=== PATIENT | female | born 1990 | race Hispanic/Latino ===

== ENCOUNTER 2019-11-08 18:29 | Emergency (ER) | payer MEDICAID, OTHER ==
[2019-11-08 19:42] LABS: BASOPHILS % (AUTO) 0.6 % (0.0-5.0); EOSINOPHILS % (AUTO) 1.6 % (0.0-8.0); HEMATOCRIT 41.9 % (36-48); LYMPHOCYTES % (AUTO) 34.7 % (21.0-51.0); MEAN CORPUSCULAR HEMOGLOBIN 26.7 pg (27.0-33.0); MEAN CORPUSCULAR HGB CONC 32.5 g/dL (32.0-36.0); MEAN CORPUSCULAR VOLUME 82.3 fL (79-99); NEUTROPHILS % (AUTO) 55.9 % (40.0-77.0); PLATELET COUNT (AUTO) 334 K/uL (130-400); RED BLOOD CELL COUNT(AUTO) 5.09 MIL/uL (4.00-5.50); RED CELL DISTRIBUTION WIDTH 13.4 % (11.0-15.5); WHITE BLOOD COUNT (AUTO) 12.3 K/uL (4.8-10.8)
[2019-11-08 19:53] LABS: APPEARANCE,URINE Clear (CLEAR); BILIRUBIN,URINE Negative (NEGATIVE); COLOR,URINE Yellow (YELLOW); GLUCOSE, URINE (UA) Negative (NEGATIVE); KETONES,URINE 15 mg/dL (NEGATIVE); LEUKOCYTE ESTERASE ,URINE Negative (NEGATIVE); NITRATE,URINE Negative (NEGATIVE); OCCULT BLOOD,URINE Negative (NEGATIVE); PROTEIN,URINE Negative (NEGATIVE)
[2019-11-08 19:54] LABS: HCG,QUAL RESULT NEGATIVE (NEGATIVE); POTASSIUM 3.8 mmol/L (3.5-5.1)
[2019-11-08 20:01] LABS: ALBUMIN 4.2 g/dL (3.5-5.0); BILIRUBIN,TOTAL 0.3 mg/dL (0.2-1.0); TOTAL PROTEIN, SERUM 8.5 g/dL (6.0-8.3)
== END 2019-11-08 21:37 | disposition home or self-care (01) ==
LOC: EDH 18:29
DX: R20.2 Paresthesia of skin (principal); J30.2 Other seasonal allergic rhinitis
CPT/HCPCS: 36415; 70450; 80053; 81003; 81025; 85025

== ENCOUNTER 2020-04-14 10:06 | Emergency (ER) | payer OTHER ==
[2020-04-14 11:42] LABS: BASOPHILS % (AUTO) 0.1 % (0.0-5.0); EOSINOPHILS % (AUTO) 0.4 % (0.0-8.0); HEMATOCRIT 45.7 % (36-48); LYMPHOCYTES % (AUTO) 24.6 % (21.0-51.0); MEAN CORPUSCULAR HEMOGLOBIN 26.5 pg (27.0-33.0); MEAN CORPUSCULAR HGB CONC 32.4 g/dL (32.0-36.0); MEAN CORPUSCULAR VOLUME 81.9 fL (79-99); MONOCYTES % (AUTO) 7.8 % (3.0-13.0); PLATELET COUNT (AUTO) 288 K/uL (130-400); RED BLOOD CELL COUNT(AUTO) 5.58 MIL/uL (4.00-5.50); RED CELL DISTRIBUTION WIDTH 14.1 % (11.0-15.5); WHITE BLOOD COUNT (AUTO) 6.9 K/uL (4.8-10.8)
[2020-04-14 11:46] LABS: CREATININE 0.8 mg/dL (0.5-1.5); INR 0.96 (0.85-1.15); POTASSIUM 3.5 mmol/L (3.5-5.1); PROTHROMBIN TIME 10.3 SEC (9.6-11.6)
[2020-04-14 11:47] LABS: PARTIAL THROMBOPLASTIN TIME 26.7 SEC (26.3-35.5)
[2020-04-14 11:51] LABS: ALBUMIN 4.2 g/dL (3.5-5.0); BILIRUBIN,TOTAL 0.1 mg/dL (0.2-1.0); TOTAL PROTEIN, SERUM 8.5 g/dL (6.0-8.3)
[2020-04-14 12:17] LABS: HCG,QUAL RESULT NEGATIVE (NEGATIVE)
[2020-04-14 12:19] LABS: APPEARANCE,URINE Cloudy (CLEAR); BILIRUBIN,URINE Small (NEGATIVE); COLOR,URINE Red (YELLOW); GLUCOSE, URINE (UA) Negative (NEGATIVE); KETONES,URINE Negative (NEGATIVE); LEUKOCYTE ESTERASE ,URINE Moderate (NEGATIVE); NITRATE,URINE Positive (NEGATIVE); OCCULT BLOOD,URINE Large (NEGATIVE); PROTEIN,URINE 300 mg/dL (NEGATIVE); UROBILINOGEN,URINE 0.2 mg/dL (0.2-1.0)
[2020-04-14 13:16] LABS: BACTERIA,URINE Few /HPF (None Seen); MUCUS,URINE Few LPF (None Seen); RBC,URINE >100 /HPF (0-1); WBC,URINE 51-100 /HPF (0-1)
== END 2020-04-14 13:03 | disposition home or self-care (01) ==
LOC: EDH 10:06
DX: N92.1 Excessive and frequent menstruation with irregular cycle (principal); Z72.0 Tobacco use; Z98.890 Other specified postprocedural states
CPT/HCPCS: 36415; 80053; 81001; 81025; 84702; 85025; 85610; 85730; 86900; 86901; 87088

== ENCOUNTER 2020-04-18 23:40 | Emergency (ER) | payer OTHER, SELFPAY ==
[~2020-04-18 23:40] MED LIST: 0.9%NACL 1000ML IV ONE
[2020-04-19 00:24] LABS: BASOPHILS % (AUTO) 0.2 % (0.0-5.0); EOSINOPHILS % (AUTO) 0.5 % (0.0-8.0); HEMATOCRIT 37.4 % (36-48); LYMPHOCYTES % (AUTO) 39.1 % (21.0-51.0); MEAN CORPUSCULAR HGB CONC 33.4 g/dL (32.0-36.0); MEAN CORPUSCULAR VOLUME 80.8 fL (79-99); MONOCYTES % (AUTO) 5.7 % (3.0-13.0); NEUTROPHILS % (AUTO) 54.4 % (40.0-77.0); PLATELET COUNT (AUTO) 250 K/uL (130-400); RED BLOOD CELL COUNT(AUTO) 4.63 MIL/uL (4.00-5.50); RED CELL DISTRIBUTION WIDTH 13.7 % (11.0-15.5); WHITE BLOOD COUNT (AUTO) 8.3 K/uL (4.8-10.8)
[2020-04-19 00:40] LABS: INR 0.99 (0.85-1.15); PROTHROMBIN TIME 10.6 SEC (9.6-11.6)
[2020-04-19 00:41] LABS: PARTIAL THROMBOPLASTIN TIME 27.3 SEC (26.3-35.5)
[2020-04-19 00:48] LABS: CREATININE 0.8 mg/dL (0.5-1.5); POTASSIUM 3.2 mmol/L (3.5-5.1)
[2020-04-19 00:53] LABS: ALBUMIN 3.6 g/dL (3.5-5.0); BILIRUBIN,TOTAL 0.2 mg/dL (0.2-1.0); TOTAL PROTEIN, SERUM 7.7 g/dL (6.0-8.3)
[2020-04-19 01:26] LABS: THYROID STIMULATING HORMONE 2.33 uIU/mL (0.36-3.74)
[2020-04-19 03:34] LABS: APPEARANCE,URINE Clear (CLEAR); BILIRUBIN,URINE Negative (NEGATIVE); COLOR,URINE Yellow (YELLOW); GLUCOSE, URINE (UA) Negative (NEGATIVE); KETONES,URINE Negative (NEGATIVE); LEUKOCYTE ESTERASE ,URINE Negative (NEGATIVE); NITRATE,URINE Negative (NEGATIVE); OCCULT BLOOD,URINE Moderate (NEGATIVE); PH,URINE 7.5 (5.0-8.0); PROTEIN,URINE Negative (NEGATIVE); UROBILINOGEN,URINE 0.2 mg/dL (0.2-1.0)
[2020-04-19 03:36] LABS: HCG,QUAL RESULT NEGATIVE (NEGATIVE)
[2020-04-19 03:42] LABS: BACTERIA,URINE None Seen /HPF (None Seen); RBC,URINE 0-1 /HPF (0-1); SQUAMOUS EPITHELIAL CELL,UR Few /HPF (0-2); WBC,URINE None Seen /HPF (0-1)
[2020-04-19 03:44] LABS: AMPHET/METH SCREEN,URINE NEGATIVE (NEGATIVE); BARBITURATE SCREEN, URINE NEGATIVE (NEGATIVE); BENZODIAZEPINES SCREEN,URINE NEGATIVE (NEGATIVE); CANNABINOID SCREEN,URINE POSITIVE (NEGATIVE); COCAINE SCREEN,URINE NEGATIVE (NEGATIVE); OPIATE SCREEN,URINE NEGATIVE (NEGATIVE); PHENCYCLIDINE SCREEN,URINE NEGATIVE (NEGATIVE)
== END 2020-04-19 04:30 | disposition home or self-care (01) ==
LOC: EDH 23:40
DX: U07.1 COVID-19 (principal); R55 Syncope and collapse; G44.89 Other headache syndrome
CPT/HCPCS: 36415 ×2; 70450; 71045; 80053; 80305; 81001; 81025; 82550; 83605; 83690; 83735; 84145; 84443; 84484; 85025; 85610; 85730; 87426; 87804 ×2; 93005; 96360; 99285; J7030

== ENCOUNTER 2023-04-25 21:39 | Emergency (ER) | payer OTHER ==
[~2023-04-25] VITALS: Ht 152.4 cm; Wt 64.9 kg
[2023-04-25 21:40] VITALS: BP 118/72; PULSE 68; RESP 16
[2023-04-25] MEDS ORDERED: CYCL10TA16 PO (22:17)
[2023-04-25] MEDS ORDERED: IBUP-2070 PO (22:17)
[2023-04-25] MEDS ORDERED: CYCLOBENZAPRINE HCL 10 MG TABLET PO ONE (22:30)
[2023-04-25] MEDS ORDERED: KETOROLAC 30MG VIAL (30MG/ML) IM ONE (22:30)
== END 2023-04-25 22:34 | disposition home or self-care (01) ==
LOC: EDH 21:39
DX: S83.8X1A Sprain of other specified parts of right knee, initial encounter (principal); Z98.890 Other specified postprocedural states; X58.XXXA Exposure to other specified factors, initial encounter; Y93.89 Activity, other specified; Y92.89 Other specified places as the place of occurrence of the external cause; Y99.8 Other external cause status
CPT/HCPCS: 99283; 73564; 96372; J1885

== ENCOUNTER 2023-05-31 05:22 | Emergency (ER) | payer OTHER ==
[~2023-05-31] VITALS: Ht 152.4 cm; Wt 64.4 kg
[~2023-05-31 05:22] MED LIST changes: -0.9%NACL 1000ML IV ONE; +CYCL10TA16 PO; +IBUP-2070 PO
[2023-05-31 06:24] LABS: BASOPHILS # (AUTO) 0.04 K/uL (0.00-0.20); BASOPHILS % (AUTO) 0.3 % (0.0-5.0); EOSINOPHILS % (AUTO) 2.5 % (0.0-8.0); HEMATOCRIT 39.3 % (36-48); IMMATURE GRANULOCYTE ABSOLUTE 0.04 K/uL (0-1); LYMPHOCYTES % (AUTO) 24.5 % (21.0-51.0); MEAN CORPUSCULAR HEMOGLOBIN 26.7 pg (27.0-33.0); MEAN CORPUSCULAR HGB CONC 33.1 g/dL (32.0-36.0); MEAN CORPUSCULAR VOLUME 80.9 fL (79-99); NEUTROPHILS # (AUTO) 7.8 K/uL (1.8-7.7); NEUTROPHILS % (AUTO) 64.4 % (40.0-77.0); PLATELET COUNT (AUTO) 285 K/uL (130-400); RED BLOOD CELL COUNT(AUTO) 4.86 MIL/uL (4.00-5.50); RED CELL DISTRIBUTION WIDTH 13.8 % (11.0-15.5); WHITE BLOOD COUNT (AUTO) 12.2 K/uL (4.8-10.8)
[2023-05-31] MEDS: 0.9%NACL 1000ML 909 ML IV ONE (06:30)
[2023-05-31 06:44] LABS: ALCOHOL, BLOOD < 3 mg/dL (0-10)
[2023-05-31 06:45] LABS: ALANINE AMINOTRANSFERASE 128 U/L (12-78); ALBUMIN 3.8 g/dL (3.5-5.0); ASPARTATE AMINOTRANSFERASE 82 U/L (10-37); BILIRUBIN,DIRECT 0.1 mg/dL (0.0-0.3); BILIRUBIN,TOTAL 0.5 mg/dL (0.2-1.0); CARBON DIOXIDE 26 mmol/L (21-32); CHLORIDE 99 mmol/L (101-111); CREATININE 0.8 mg/dL (0.5-1.5); GLOMERULAR FILTR. RATE CALC 100 mL/min (>90); GLUCOSE,RANDOM 152 mg/dL (70-105); POTASSIUM 3.6 mmol/L (3.5-5.1); SODIUM SERUM 135 mmol/L (136-145); TOTAL PROTEIN, SERUM 7.9 g/dL (6.0-8.3); UREA NITROGEN, BLOOD 9 mg/dL (7-18)
[2023-05-31 06:55] LABS: RAPID GROUP A STREP negative (NEGATIVE)
[2023-05-31 07:05] LABS: INFLUENZA TYPE A Negative For Type A (NEGATIVE); INFLUENZA TYPE B Negative For Type B (NEGATIVE)
[2023-05-31 07:42] LABS: COVID19 (SARS ANTIGEN RAPID) PRESUMPTIVE NEGATIVE (NEGATIVE)
[2023-05-31 07:46] LABS: APPEARANCE,URINE CLEAR (CLEAR); BILIRUBIN,URINE NEGATIVE (NEGATIVE); COLOR,URINE COLORLESS (YELLOW); GLUCOSE, URINE (UA) NEGATIVE (NEGATIVE); HCG,QUALITATIVE URINE NEGATIVE (NEGATIVE); KETONES,URINE NEGATIVE (NEGATIVE); LEUKOCYTE ESTERASE ,URINE NEGATIVE Leu/uL (NEGATIVE); NITRATE,URINE NEGATIVE (NEGATIVE); OCCULT BLOOD,URINE NEGATIVE (NEGATIVE); PH,URINE 6.5 (5.0-8.0); PROTEIN,URINE NEGATIVE (NEGATIVE); UROBILINOGEN,URINE 0.2 mg/dL (0.2-1.0)
[2023-05-31 07:47] LABS: ADD UA MICROSCOPIC NO
[2023-05-31 07:54] LABS: AMPHET/METH SCREEN,URINE NEGATIVE (NEGATIVE); BARBITURATE SCREEN, URINE NEGATIVE (NEGATIVE); BENZODIAZEPINES SCREEN,URINE NEGATIVE (NEGATIVE); CANNABINOID SCREEN,URINE POSITIVE (NEGATIVE); COCAINE SCREEN,URINE NEGATIVE (NEGATIVE); OPIATE SCREEN,URINE NEGATIVE (NEGATIVE); PHENCYCLIDINE SCREEN,URINE NEGATIVE (NEGATIVE)
[2023-05-31 10:30] VITALS: BP 112/71; PULSE 92; RESP 18; O2SAT 100
== END 2023-05-31 10:47 | disposition home or self-care (01) ==
LOC: EDH 05:22
DX: J06.9 Acute upper respiratory infection, unspecified (principal); Z20.822 Contact with and (suspected) exposure to COVID-19; Z79.899 Other long term (current) drug therapy; Z98.890 Other specified postprocedural states
CPT/HCPCS: 99285; 70450; 96360; 96361; 71045; 87426; 80076; 84484; 80048; 80305; 83690; 85025; 87880; 87804 ×2; 81003; 81025; 36415; 73562; 73030; 72125; 70486; 93005; J7030